=== PATIENT | female | born 1990 | race Caucasian/White ===

== ENCOUNTER 2020-02-22 06:58 | Outpatient (NON) | payer OTHER, SELFPAY ==
[2020-02-22 18:22] LABS: SARS-CoV-2 RNA PCR Negative
== END 2020-02-22 06:59 ==
LOC: ANHCOVIDDT 07:21
PROVIDERS: Visit Provider Physician Assistant
DX: Z20.828 Contact with and (suspected) exposure to other viral communicable diseases (principal); R09.89 Other specified symptoms and signs involving the circulatory and respiratory systems; R07.89 Other chest pain; R51.9 Headache, unspecified; J02.9 Acute pharyngitis, unspecified
CPT/HCPCS: 87635; C9803; U0003

== ENCOUNTER 2020-03-29 06:54 | Outpatient (NON) | payer OTHER, SELFPAY ==
[2020-03-29 19:23] LABS: SARS-CoV-2 RNA PCR Negative
== END 2020-03-29 06:55 ==
PROVIDERS: Visit Provider Physician Assistant Medical
DX: R09.89 Other specified symptoms and signs involving the circulatory and respiratory systems (principal); J02.9 Acute pharyngitis, unspecified
CPT/HCPCS: C9803; U0003

== ENCOUNTER → 2021-04-03 03:00 | Outpatient (CLI) | payer OTHER, SELFPAY ==
[2021-04-03 14:55] LABS: Influenza A QL RT-PCR Negative (Negative); Influenza B QL RT-PCR Negative (Negative)
[2021-04-04 01:23] LABS: SARS-CoV-2 RNA PCR Positive
== END ==
PROVIDERS: PCP Family Medicine; Visit Provider Family Medicine
DX: U07.1 COVID-19 (principal); R68.83 Chills (without fever); R68.89 Other general symptoms and signs
CPT/HCPCS: 87502; C9803; U0003; U0005

== ENCOUNTER → 2021-07-23 09:15 | Outpatient (CLI) | payer OTHER, SELFPAY ==
[2021-07-23 11:42] LABS: SARS-CoV-2 RNA PCR Positive
== END ==
PROVIDERS: PCP Family Medicine; Visit Provider Family Medicine
DX: U07.1 COVID-19 (principal)
CPT/HCPCS: C9803; U0003; U0005

== ENCOUNTER 2022-01-19 13:21 | Emergency (ER) | payer OTHER, SELFPAY ==
[2022-01-19 13:50] VITALS: BP 124/90; PULSE 107; RESP 16; TEMP 36.8; O2SAT 100
--- NOTE | 2022-01-19 14:07 | ED.URI ---
HPI - URI/Sore Throat General Chief Complaint: Upper Respiratory Infection Stated Complaint: wants strep test Time Seen by Provider: 01/19/22 14:00 History of Present Illness HPI Narrative: 31-year-old female presents for complaint of sore throat headache for 3 days. Endorses post nasal drainage and believes she vomited the mucous, otherwise denies nausea, vomiting or cough. Taking ibuprofen for symptoms. PCN allergy. Related Data Allergies Allergy/AdvReac Type Severity Reaction Status Date / Time amoxicillin Allergy Unknown Rash Verified 07/31/21 11:23 Penicillins Allergy Unknown unknown Verified 08/13/20 11:07 Review of Systems Review of Systems: CONSTITUTIONAL: Denies body aches EYES: Denies visual changes, redness, or discharge. ENT: per HPI CARDIOVASCULAR: Denies chest pain, palpitations, or edema. RESPIRATORY: Denies dyspnea. GASTROINTESTINAL: Denies abdominal pain or diarrhea. SKIN: Denies rash MUSCULOSKELETAL: Denies back pain, joint pain, or myalgia. NEUROLOGIC: Denies headache PMFSH Past Medical History Medical History COVID-19 Family History Family History Grandparent Diabetes mellitus Social History Social History Alcohol intake: never Exam Narrative: GENERAL: Ill-appearing, no acute distress. EYES: conjunctivae clear ENT: Mucous membranes moist. TMs pearly frausto with normal light reflex bilaterally; no tragal tenderness. Oropharynx erythematous, Tonsils enlarged 3+ with exudate. No drooling, no hoarseness, no trismus, uvula midline. No tripod positioning, hot potato voice, or soft palate swelling. CHEST: Clear to auscultation, breath sounds equal. HEART: Regular rate and rhythm. No murmur heard. SKIN: Warm, dry, no rash. NEURO: Alert and oriented x3. Course Course Emergency Course: Patient is aware of diagnosis, understands and agrees to treatment plan. Anticipatory guidance given. Patient agrees to follow-up as directed and is aware of reasons to seek care at the emergency department. Portions of this record may have been created with voice recognition software Level of Care: Express Care Visit Vital Signs Vital signs: Vital Signs Temperature 98.3 F 01/19/22 13:50 Pulse Rate 107 H 01/19/22 13:50 Respiratory Rate 16 01/19/22 13:50 Blood Pressure 124/90 01/19/22 13:50 Pulse Oximetry 100 01/19/22 13:50 Temperature 98.3 F 01/19/22 13:50 Pulse Rate 107 H 01/19/22 13:50 Respiratory Rate 16 01/19/22 13:50 Blood Pressure 124/90 01/19/22 13:50 Pulse Oximetry 100 01/19/22 13:50 MDM - URI/Sore Throat MDM Narrative Medical decision making narrative: Positive strep result reviewed with pt. Advise supportive treatments. Patient is appropriate for outpatient treatment and follow-up. Differential Diagnosis Differential diagnosis: Likely upper respiratory infection, viral infection and pharyngitis Lab Data Labs: Strep Screen Positive Group A Strep *(Reference Range: Negative)* Discharge Plan Discharge Clinical Impression: Strep pharyngitis Patient Disposition: Home, Self-Care Condition: Stable Instructions: Strep Throat (ED) Additional Instructions: - Take the antibiotic as directed. Fever and sore throat typically resolve within one to three days. Most patients can return to work, after 24 hours of antibiotic therapy, provided you are fever free and otherwise well. -Eat and drink things that are easy to swallow, like soft foods, cool liquids, tea with honey, or popsicles . -Salt water gargles and/or may use topical anesthetic ( Chloraseptic spray) or lozenges to relieve dryness or throat pain -Alternate Tylenol and ibuprofen as needed for pain and fever as directed. -Frequent hand washing or hand sanitiz
== END 2022-01-19 14:23 | disposition home or self-care (01) ==
PROVIDERS: Emergency Provider Nurse Practitioner Family; PCP Family Medicine
DX: J02.0 Streptococcal pharyngitis (principal); Z86.16 Personal history of COVID-19
CPT/HCPCS: 87880; 99213; G0463

== ENCOUNTER → 2022-03-28 | Outpatient (CLI) | payer OTHER, SELFPAY ==
--- NOTE | 2022-04-08 12:01 | WPDHOMESLEEP ---
Sleep Study - Home Unattended Date of Study: 03/28/22 Ordering Provider: Javi Badillo MD Interpreting Provider: Laverne Ramirez, DO Home Sleep Study Type: Watch PAT Height: 1.78 m Weight: 95.254 kg Body Mass Index: 30.1 Neck Circumference (inches): 14 [place]: 5 Reason for Sleep Study Recommendation from dentist due to teeth grinding Sleep History The patient is a 31 year old female that was recommended to have a sleep study by her dentist for teeth grinding.? The patient denies awakening from sleep short of breath.? She rarely awakens at night with heartburn, belching or cough.? She constantly snores and frequently it is loud enough that others complain.? She constantly has trouble sleeping when she has a cold.? She denies waking up gasping for air throughout the night.? She frequently has breathing problems at night observed by herself or others.? She denies sweating excessively at night.? She denies having heart palpitations or irregular heartbeats during the night.? She occasionally falls asleep during the day.? She rarely falls asleep while driving.? She occasionally experiences loss of muscle tone when extremely emotional.? She rarely has trouble at school or work due to sleepiness.? She denies sleep paralysis and hypnagogic/ hypnopompic hallucinations.? She denies feeling afraid of going to sleep.? She rarely has nightmares and occasionally remembers her dreams.? She occasionally has thoughts racing through her mind.??She frequently feels sad, depressed and anxious.??She frequently has muscular tension.? She occasionally notices parts of her body jerk.? She rarely kicks during the night.? She denies having crawling and aching feelings in her legs as well as leg pain during the night.? She frequently grinds her teeth during sleep and frequently awakens with morning jaw pain.? She is occasionally bothered by pain during the day but never awakened by pain during the night.? She occasionally wakes up feeling stiff in the morning.? She occasionally wakes up with sore achy muscles.? She frequently wakes up with pain in the neck, spine or other joints.? ? She goes to bed between 10:00 p.m. and midnight on both weekdays and weekends.? It takes her 20-30 minutes to fall asleep.? She wakes up 2-4 times throughout the night for unknown reasons.? She is able to fall back asleep within a few minutes.? She wakes up between 7-8 a.m. on weekdays and between 8-9 a.m. on the weekends.? She typically gets 5-8 hours of sleep per night.? She will stay in bed for 5 minutes after waking up in the morning.? He currently lives with her and 2 children.? She will consume caffeinated beverages within 2 hours of bedtime.? She does not engage in physical exercise before bedtime.? She will read and watch television before falling asleep.? She denies taking naps in the afternoon or the evening. ? She consumes caffeinated beverages throughout the day.? She drinks 3-4 alcoholic beverages per week.? She denies tobacco and recreational drug use. [facility] Past Medical History Medical History COVID-19 Family History Family History Grandparent Diabetes mellitus Social History Social History Alcohol intake: never Medications Home Medications Medication Instructions Recorded Confirmed Type azithromycin 250 mg tablet See Rx Instructions PO .COMPLEX #6 01/19/22 Rx (Zithromax Z-Jhon) tabs Sleep Procedure The sleep study was completed using [employer] a technically adequate device with seven channels: peripheral arterial tone, actigraphy, body position, snore, respiratory movement, pulse oximetry, sleep staging, and heart rate. Prior to using the device, the patient received verbal and written instructions for its application and was provided with the help desk phone number for additi
[2022-04-08 12:02] VITALS: BMI 30.1
== END | disposition home or self-care (01) ==
LOC: ANHCSM 08:22
PROVIDERS: PCP Family Medicine; Visit Provider Family Medicine
DX: G47.9 Sleep disorder, unspecified (principal); R53.83 Other fatigue
CPT/HCPCS: 95800